=== PATIENT | female | born 1985 | race Caucasian/White ===

== ENCOUNTER 2018-03-05 20:09 | Emergency (ER) | payer BC ==
[2018-03-05 21:22] VITALS: BP 129/83
[2018-03-05] MEDS ORDERED: Acetaminophen TAB* 325 MG PO ONE (21:24)
--- NOTE | 2018-03-05 21:27 | UC ---
Throat Pain/Nasal Johnathon HPI - HPI Summary HPI Summary: 33 y/o female presents to the urgent care c/o sore throat since Friday. Pt states nasal congestion w/ +PND yellowish and fever since yesterday. Pt reports fever of 102F today and she has been taking Tylenol PO, Mucinex and Zyrtec PO to alleviate symptoms w/o any improvement. 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 She also states Rt ear pressure and a mild dry cough. Pt has been drinking fluids. Pt denies rash, WILLAMS, neck pain or stiffness, SOB, chest pain,abdominal pain, N/V/D. - History of Current Complaint Chief Complaint: UCRespiratory Stated Complaint: FEVER, THROAT PAIN Time Seen by Provider: 03/05/18 21:25 Hx Obtained From: Patient Hx Last Menstrual Period: 1 MONTH AGO ?: No Onset/Duration: Gradual Onset, Lasting Days - 3 days, Still Present, Worse Since - today Severity: Moderate Pain Intensity: 5 - sore throat Pain Scale Used: 0-10 Numeric Cough: Nonproductive Associated Signs & Symptoms: Positive: Dysphagia, Nasal Discharge, Fever - Epiglottits Risk Factors Epiglottis Risk Factors: Negative - Allergies/Home Medications Allergies/Adverse Reactions: Allergies Allergy/AdvReac Type Severity Reaction Status Date / Time MS Cefac[facility] [place] Allergy Mild Hives Verified 03/05/18 21:16 Home Medications: Home Medications Ibuprofen 600 mg PO Q8H PRN 03/05/18 [History Confirmed 03/05/18] guaiFENesin [Mucinex] 600 mg PO Q12H 03/05/18 [History Confirmed 03/05/18] PMH/Surg Hx/FS Hx/Imm Hx Previously Healthy: Yes Endocrine History: Hypothyroidism Other Endocrine History: Vitamin D deficiency - Surgical History Surgical History: Yes Surgery Procedure, Year, and Place: - Family History Known Family History: Positive: Hypertension Family History: Dyslipidemia - Social History Occupation: Employed Full-time Lives: With Family Alcohol Use: Rare Substance Use Type: None Smoking Status (MU): Never Smoked Tobacco - Immunization History Most Recent Influenza Vaccination: 07/21/14 Most Recent Tetanus Shot: 2011 Most Recent Pneumonia Vaccination: never Review of Systems Constitutional: Fever, Chills Skin: Negative Eyes: Negative ENT: Sore Throat, Ear Ache - RT ear pressure, Nasal Discharge - clear Respiratory: Cough - dry Cardiovascular: Negative Gastrointestinal: Negative Genitourinary: Negative Motor: Negative Neurovascular: Negative Musculoskeletal: Negative Neurological: Negative Psychological: Negative Is Patient Immunocompromised?: No All Other Systems Reviewed And Are Negative: Yes Physical Exam - Summary Physical Exam Summary: VITAL SIGNS: Reviewed. GENERAL: Patient is a well developed and nourished female who is sitting comfortable in the examining table. Patient is not in any acute respiratory distress. HEAD AND FACE: No signs of trauma. No ecchymosis, hematomas or skull depressions. No sinus tenderness. EYES: PERRLA, EOMI x 2, No injected conjunctiva, no nystagmus. No photophobia. EARS: Hearing grossly intact. Ear canals and tympanic membranes are within normal limits. MOUTH: Positive pharynx with mild erythema, no exudates, no palatal petechiae. mild B/L tonsillar enlargement with no exudate. Uvula in midline. +PND clear NECK: Supple, trachea is midline, Positive anterior cervical lymphadenopathy, no JVD, no carotid bruit, no c-spine tenderness, neck with full ROM. No meningeal signs, no Kernig's or brudzinskis signs. CHEST: Symmetric, no tenderness at palpation LUNGS: Clear to auscultation bilaterally. No wheezing or crackles. CVS: Regular rate and rhythm, S1 and S2 present, no murmurs or gallops appreciated. ABDOMEN: Soft, non-tender. No signs of distention. No rebound no guarding, and no masses palpated. Bowel sounds are normal. EXTREMITIES: FROM in all major joints, no edema, no cyanosis or clubbing. NEURO: Alert and oriented x 3. No acute neurological deficits. Speech is normal and follows commands. SKIN: Dry and warm Triage Information Reviewed: Yes Vital Signs: Initial Vital Signs Temp 101.6 F 03/05/18 21:18 Pulse 107 03/05/18 21:18 Resp 18 03/05/18 21:18 BP 129/83 03/05/18 21:18 Pulse Ox 100 03/05/18 21:18 Throat Pain/Nasal Course/Dx - Course Course Of Treatment: 33 y/o female presents to the urgent care c/o sore throat since Friday03/02/2018. Pt states nasal congestion w/ +PND yellowish and fever since yesterday. Pt reports fever of 102F today and she has been taking Tylenol PO, Mucinex and Zyrtec PO to alleviate symptoms w/o any improvement. 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 She also states Rt ear pressure and a mild dry cough. Pt has been drinking fluids. Pt denies rash, WILLAMS, neck pain or stiffness, SOB, chest pain,abdominal pain, N/V/D. Hx obtained. Pt w/ viral syndrome and febrile 101.6F on examination. Rapid strep: negative. Influenza A&B ordered: result: negative. Pt given Tylenol PO at the clinic to alleviate fever. Pt advised to continue w/ ibuprofen/Tylenol PO to alleviates symptoms. Advised on hand washing. Pt advised to rest, increase fluid intake, eat well and avoid strenuous exercise. If symptoms do not improve or worsen advised to return to the urgent care or f/u with her PCP for further evaluation and treatment. Pt understood and agreed with plan of care. - Differential Dx/Diagnosis Differential Diagnosis/HQI/PQRI: Influenza, Laryngitis, Mononucleosis, Otitis Media, Pharyngitis, Sinusitis, Tonsillitis, URI Provider Diagnoses: 1- Viral syndrome Discharge - Sign-Out/Discharge Documenting (check all that apply): Discharge/Admit/Transfer - D/C home - Discharge Plan Condition: Stable Disposition: HOME Patient Education Materials: Viral Syndrome (ED) Referrals: Gris Mcclellan NP [Primary Care Provider] - 2 Days Additional Instructions: 1-Influenza A&B and Strep test are negative. 2-Please take ibuprofen /Tylenol PO q6-8hrs prn as instructed after meals to alleviate fever, pain and swelling. Increase fluid intake, eat well, rest and avoid strenuous exercise 3-If symptoms do not improve or worsen please return to the urgent care or f/u with your PCP in 2-3 days for further evaluation and treatment. - Billing Disposition and Condition Condition: STABLE Disposition: HOME
== END 2018-03-05 22:13 | disposition home or self-care (01) ==
LOC: UCEAST 20:09
DX: B34.9 Viral infection, unspecified (principal); E03.9 Hypothyroidism, unspecified; E55.9 Vitamin D deficiency, unspecified; Z88.1 Allergy status to other antibiotic agents
CPT/HCPCS: 87502; 87651; 99212; A9270-GY; G0463